=== PATIENT | female | born 2000 | race Caucasian/White ===

== ENCOUNTER 2023-11-28 17:53 | Emergency (ER) | payer MEDICAID, OTHER ==
[~2023-11-28] VITALS: Ht 165.1 cm; Wt 65.0 kg
[2023-11-28 18:03] VITALS: O2SAT 99
[2023-11-28] MEDS: IBUPROFEN 600MG TABLET PO ONE (19:40)
[2023-11-28] MEDS: TETANUS, DIPHTHERIA, PERTUSSIS VAC/PF 0.5ML (>10YR OLD) IM ONE (20:02)
[2023-11-28 20:35] VITALS: BP 141/78; PULSE 82; RESP 16; TEMP 98
== END 2023-11-28 20:35 | disposition home or self-care (01) ==
LOC: ER 17:53
DX: M25.572 Pain in left ankle and joints of left foot (principal); M25.562 Pain in left knee
CPT/HCPCS: 81025; 73562; 73610; 73630; 90715; 29515; 90471; 99284; Z7610 ×2